=== PATIENT | male | born 1985 | race African-American/Black ===

== ENCOUNTER 2018-05-30 01:44 | Emergency (ER) | payer OTHER ==
[2018-05-30] MEDS ORDERED: Ketorolac Tromethamine 60 MG/2 ML VIAL ONE (01:57)
[2018-05-30] MEDS ORDERED: HYDROcodone/Acetaminophen 5/325 mg Tablet ONE (01:57)
[2018-05-30] MEDS ORDERED: predniSONE 20 MG TAB ONE (01:57)
== END 2018-05-30 02:18 | disposition home or self-care (01) ==
LOC: MADERS 01:44
DX: M54.5 Low back pain (principal)
CPT/HCPCS: 96372; J1885; J7506